=== PATIENT | female | born 1970 | race Caucasian/White ===

== ENCOUNTER 2022-07-19 08:38 | Day surgery (SDC) | payer OTHER ==
[2022-07-19] MEDS ORDERED: Phenylephrine 2.5% Ophth Soln 5 ML BOT FS SCH (09:00)
[2022-07-19] MEDS ORDERED: Cyclopentolate 1% Opth Drop 2 ML BOT FS SCH (09:00)
[2022-07-19] MEDS ORDERED: EPINEPHrine 0.3 MG in Ophthalmic Irrigation Solution 500 ML IRR SCH (09:00)
[2022-07-19] MEDS ORDERED: Cyclopentolate 1% Opth Drop 2 ML BOT ONE (09:08)
[2022-07-19] MEDS ORDERED: Phenylephrine 2.5% Ophth Soln 5 ML BOT ONE (09:08)
[2022-07-19] MEDS ORDERED: PROPOFOL 20 ML ONE (09:46)
[2022-07-19] MEDS ORDERED: fentaNYL PF 100 MCG/2 ML SYRINGE ONE (09:46)
[2022-07-19] MEDS ORDERED: Midazolam HCl 2 mg/2 ml Vial ONE (09:46)
[2022-07-19] MEDS ORDERED: Triamcinolone 40 MG/ML VIAL ONE (10:01)
[2022-07-19] MEDS ORDERED: Lidocaine 4% PF 5 ML AMP ONE (10:01)
[2022-07-19] MEDS ORDERED: Bupivacaine 0.75% 10 ML VIAL ONE (10:01)
[2022-07-19] MEDS ORDERED: CEFAZOLIN 1 GM VIAL ONE (10:01)
[2022-07-19] MEDS ORDERED: Lidocaine 1% PF 5 ML VIAL ONE (10:01)
[2022-07-19] MEDS ORDERED: Maxitrol 0.1% Opth Oint 3.5 GM TUBE ONE (10:01)
== END 2022-07-19 11:06 | disposition home or self-care (01) ==
LOC: SDC 08:38
PROVIDERS: ATTEND Ophthalmology Retina Specialist
PROC: 08T43ZZ Resection of Right Vitreous, Percutaneous Approach (ICD-10-PCS; principal; 2022-07-19)
DX: H33.021 Retinal detachment with multiple breaks, right eye (principal)
CPT/HCPCS: 67025; J0171; J2250; J2704